=== PATIENT | female | born 1980 | race Caucasian/White ===

== ENCOUNTER 2019-07-24 13:31 | Outpatient (CLI) | payer OTHER ==
[2019-07-24 14:55] LABS: TSH 2.19 mIU/l (0.465-4.685)
== END 2019-07-24 13:33 ==
LOC: LAB 13:31
PROVIDERS: ATTEND Family Medicine
DX: Z13.29 Encounter for screening for other suspected endocrine disorder (principal); K86.1 Other chronic pancreatitis
CPT/HCPCS: 36415; 83690; 84443